=== PATIENT | male | born 1975 | race Caucasian/White ===

== ENCOUNTER 2019-06-11 06:01 | Day surgery (SDC) | payer OTHER ==
[2019-06-11] MEDS ORDERED: CEFAZOLIN SODIUM IN 0.9 % NACL 2 GM/100 ML BAG IV ONE (06:16)
[2019-06-11] MEDS ORDERED: LACTATED RINGERS 1,000 ML IV ONE (06:19)
--- NOTE | 2019-06-11 07:01 | ANESTHESIA ---
Pre-Anesthesia VS, & Labs - Diagnosis right knee meniscus tear - Procedure right knee meniscus repair Vital Signs: Temp Pulse Resp BP Pulse Ox 36.2 C L 61 15 163/106 H 96 06/11/19 06:31 06/11/19 06:31 06/11/19 06:31 06/11/19 06:31 06/11/19 06:31 Height 5 ft 11 in Weight (kg) 100 kg Home Medications and Allergies Home Medications: Ambulatory Orders Ibuprofen [Motrin] 600 mg PO Q6H PRN 05/29/19 Ibuprofen [Motrin] 600 mg PO Q6H PRN 05/29/19 Allergies/Adverse Reactions: Allergies Allergy/AdvReac Type Severity Reaction Status Date / Time No Known Drug Allergies Allergy Verified 05/29/19 12:50 Anes History & Medical History - Anesthetic History Anesthesia Complications: reports: No previous complications Family history of Anesthesia Complications: Denies Family history of Malignant Hyperthermia: Denies - Medical History Cardiovascular: reports: None Pulmonary: reports: None Gastrointestinal: reports: None Urinary: reports: None Neuro: reports: None Musculoskeletal: reports: None Endocrine/Autoimmune: reports: None Blood Disorders: reports: None Skin: reports: None Smoking Status: Never smoker Psychosocial: reports: No issues indicated - Surgical History General: Other Orthopedic: ACL reconstruction Exam General: Alert, Oriented x3, Cooperative, No acute distress Dental: WNL Mouth Openin Fingerbreadth Neck Mobility: Normal Mallampati classification: I Thyromental Distance: 4-6 cm Respiratory: Lungs clear, Normal breath sounds, No respiratory distress, No accessory muscle use Cardiovascular: Regular rate, Normal S1, Normal S2, No murmurs Abdomen: Normal bowel sounds, Soft, No tenderness, No hepatospenomegaly, No masses Extremities: No clubbing, No cyanosis, No edema, Normal pulses, No tenderness/swelling Neurological: Normal gait, Normal speech, Strength at 5/5 X4 ext, Normal tone, Sensation intact, Cranial nerves 3-12 NL, Reflexes 2+ Mental/Cognitive Status: Alert/Oriented X3, Normal for patient Cognitive Status: Within normal limits Plan Anesthesia Type: General Consent for Procedure(s) Verified and Reviewed: Yes Code Status: Attempt Resuscitation ASA classification: 2-Mild systemic disease (high blood pressure this morning, but denies any history of hypertension) Is this case an emergency?: No
[2019-06-11] MEDS ORDERED: EPINEPHrine 1 MG/ML AMP ONE (07:12)
[2019-06-11] MEDS ORDERED: BUPIVACAINE 0.25% PF 30 ML VIAL ONE (07:12)
[2019-06-11] MEDS ORDERED: PROPOFOL 200 MG/20 ML VIAL IVP ONE ×2 (07:24→07:26)
[2019-06-11] MEDS ORDERED: ONDANSETRON 4 MG/2 ML VIAL IVP ONE ×2 (07:24→07:26)
[2019-06-11] MEDS ORDERED: ACETAMINOPHEN 1,000 MG/100 ML 100 ML IV ONE ×2 (07:24→07:26)
[2019-06-11] MEDS ORDERED: GLYCOPYRROLATE 1 MG/5 ML VIAL IVP ONE ×2 (07:24→07:26)
[2019-06-11] MEDS ORDERED: KETOROLAC 30 MG/ML VIAL IVP ONE ×2 (07:24→07:26)
[2019-06-11] MEDS ORDERED: DEXAMETHASONE 4 MG/ML VIAL IVP ONE ×2 (07:24→07:26)
[2019-06-11] MEDS ORDERED: LIDOCAINE-MPF 2% 5 ML VIAL IM ONE ×2 (07:24→07:26)
[2019-06-11] MEDS ORDERED: fentaNYL 100 MCG/2 ML VIAL IVP ONE ×2 (07:24→07:26)
[2019-06-11] MEDS ORDERED: BUPIVACAINE 0.25% PF 30 ML VIAL SUBQ ONE (07:59)
[2019-06-11] MEDS ORDERED: ONDANSETRON 4 MG/2 ML VIAL IVP PRN (08:29)
[2019-06-11] MEDS ORDERED: oxyCODONE 5 MG TABLET PO PRN (08:29)
[2019-06-11] MEDS: HYDROmorphone 0.5 MG/0.5 ML SYRINGE ONE ×2 (08:36→08:41)
--- NOTE | 2019-06-11 08:42 | IMMEDIATE POSTOPERATIVE NOTE ---
Immediate Postoperative Note - Procedure Note Procedure Date: 06/11/19 Pre-Op Diagnosis: Right knee medial meniscus tear Procedure: Right knee arthroscopic partial medial meniscectomy Post-Op Diagnosis: Same Primary Surgeon: Meenakshi Porter MD Contract Admin: None Anesthesia Type: General LMA, Local Complications: No complications Estimated Blood Loss (in cc): 25 Drains, Catheters, Devices: None Specimens and Cultures: None Plan of Care: Patient tolerated procedure well instrument and sponge counts correct patient was transferred recovery room in stable additional follow standard postoperative right knee partial meniscectomy protocol
[2019-06-11] MEDS ORDERED: fentaNYL 100 MCG/2 ML VIAL ONE (08:51)
[2019-06-11] MEDS ORDERED: oxyCODONE 5 MG TABLET ONE (09:17)
--- NOTE | 2019-06-11 09:44 | OPERATIVE REPORT ---
DATE OF SERVICE: 06/11/2019 Physician: Gael Porter MD SURGEON: Gael Porter MD CELLO TEACHER: None. ANESTHESIA PROVIDER: Nish Schaffer CRNA. ANESTHESIA: General LMA, as well as 20 mL of 0.25% Marcaine local periarticular injection. PREOPERATIVE DIAGNOSIS: Right knee medial meniscus tear. POSTOPERATIVE DIAGNOSES 1. Right knee medial meniscus tear. 2. Right knee chondromalacia, multiple compartments. PROCEDURE PERFORMED: Right knee arthroscopic partial medial meniscectomy. INTRAOPERATIVE COMPLICATIONS: None noted. PREOPERATIVE ANTIBIOTICS: Weight-based IV Ancef 2 g. TOURNIQUET TIME: 25 mL FLUIDS: 350 mL lactated Ringer's. HISTORY OF PRESENT ILLNESS AND INDICATIONS: Patient is a 43-year-old gentleman who is quite active a nd had symptoms, signs and MRI findings consistent with medial meniscus tear, right knee. He failed nonoperative treatment and was quite limited regarding his preferred activities secondary to his righ t knee. We previously discussed risks, benefits, and alternatives of arthroscopic partial meniscecto my. He is indicated for this procedure. Risks, benefits, alternatives previously reviewed and again highlighted in the preoperative care unit. Patient and patient's 's questions were answered, he verbalized understanding of the above and verbalized wish to proceed with operative treatment noted. Informed consent was given. INTRAOPERATIVE FINDINGS: The patient is noted to have suprapatellar pouch clear. Medial and lateral gutters clear. Chondromalacia grade 1-2 patellofemoral compartment chondromalacia, grade 1-2 latera l tibial plateau with lateral femoral condyle and meniscus intact. Medial compartment shows grade 1- 2 chondromalacia with minimal deeper split near the weightbearing surface of the medial femoral condy le and grade 1 of the medial tibial plateau. The areas of chondromalacia are noted to be less than 1 5-20% of each surface in all cases. Medial meniscus shows complex tearing of the posterior horn and body. There is a radial component that goes near to the periphery, but then transitions into a horiz ontal component involving the majority of the inferior leaflet though the superior most periphery rem ains intact. Post-partial meniscectomy, less than 20-30% of the meniscus is noted to be involved in the remaining meniscus has smooth transition zones and good stability. No loose bodies appreciated. PROCEDURE IN DETAIL: On 06/11/2019, patient is identified in the preoperative care unit. He identif ied his right knee as the operative site. This is signed by the operating surgeon. Patient received preoperative weight-based IV antibiotics. He is brought to the operating room. General anesthesia is administered. He is placed in a comfortably safe position to avoid head, neck, and extremity inju ry. Right lower extremity has a well-padded tourniquet placed high on the right thigh, taking care t o avoid encumbrance of genitalia. This tourniquet is not used during the case. Patient's right knee had previously been shaved. Right knee and right lower extremity pre-scrubbed with Hibiclens soluti on, followed by alcohol, followed by ChloraPrep and draped under sterile conditions. At this time, surgical pause identifies right knee as the operative site. At this point, local anest hesia is infused superomedially, anteromedially and anterolaterally. A small stab incision made ante rolaterally and superomedially. Scope was introduced into the notch first and then into the suprapat ellar pouch. Fluid is infused. Outflow portal was created superomedially and then an outside-in chelle hnique was used to identify appropriate anteromedial starting point. A small incision is made. Prob e is introduced. Diagnostic arthroscopy is carried out. Please see operative findings. At this time, valgus maneuver is used with varying degrees of flexion to avoid any iatrogenic injury to articular surfaces in the medial compartment is opened. A combination of upbiting meniscal basket s and curved meniscal shaver are used to debride nonviable and torn portions of the medial meniscus. This involves a radial tear and the meniscal basket is taken down to the peripheral most aspect of t he tear, which is not quite to the periphery of the meniscus. The undersurface leaflet is then taken as it is unstable and more complexly torn and then this is all smoothed out using a curved meniscal shaver to decrease the areas of any rough or jagged meniscus. The transition zones are smoothed out. The meniscus is re-probed and noted to be stable throughout. As such, no further meniscectomy was indicated. The joint is copiously irrigated, reexamined and noted to be free of loose debris and then repeat copping machine operator ious irrigation is performed, and then the knee is evacuated. Incisions are closed after instruments are removed. Periarticular injection of anesthesia is performed. Skin is washed and dried. Xerofo rm dressing is applied after nylon is used to close the incisions, 4 x 4, Sof-Rol, and then Rocky wrap are applied. Patient tolerated the procedure well. Instrument and sponge counts are correct. Patient is transfer red to the recovery room in stable condition. Patient will follow standard postoperative right knee partial meniscectomy protocol. He will followup in 10-14 days or sooner should problems or questions arise. TD: 06/11/2019 08:56
[2019-06-11 09:51] VITALS: BP 156/110
== END 2019-06-11 06:02 | disposition home or self-care (01) ==
LOC: SDS 06:01
PROVIDERS: ATTEND Orthopaedic Surgery Sports Medicine
DX: M23.221 Derangement of posterior horn of medial meniscus due to old tear or injury, right knee (principal); M94.261 Chondromalacia, right knee
CPT/HCPCS: 29881; A9270; J0131; J0690; J1170; J7120

== ENCOUNTER 2020-10-05 18:38 | Emergency (ER) | payer OTHER ==
[2020-10-05] MEDS ORDERED: HYDROmorphone 1 MG/ML CARPUJECT IM STA (19:46)
--- NOTE | 2020-10-05 19:51 | XRAY Report ---
PROCEDURE: Foot 3 View LT INDICATIONS: soccer injury, c/o L foot pain TECHNIQUE: 3 views of the foot were acquired. COMPARISON: None FINDINGS: Bones: No fractures or dislocations. No suspicious bony lesions. Soft tissues: No tibiotalar joint effusion. Achilles tendon appears normal. IMPRESSION: No visualized acute fracture or dislocation. However, occult injury cannot be excluded. Recommend jina rt interval imaging follow-up in 7-10 days as clinically indicated for additional evaluation. Reviewed by: Mariposa Pugh MD on 10/05/2020 7:49 PM PDT Approved by: Mariposa Pugh MD on 10/05/2020 7:49 PM PDT Station ID: [id number]
--- NOTE | 2020-10-05 19:55 | ED Physician Documentation ---
History of Present Illness - Stated complaint Stated Complaint: LT FOOT/RIB PX - Chief complaint Chief Complaint: Trauma Ext - Additonal information Additional information: 44-year-old male presents emergency department for evaluation of acute left rib and foot pain. He was playing soccer for the first time in quite some time today and another player accidentally stepped on his left forefoot. He has had some pain and swelling at the MCP of the great toe, pointer toe and middle toe since. Some pain bearing full weight. His biggest area of concern however is the left rib and back pain that he got around the same time when somebody stepped on him. He does not remember another player elbowing him or jarring him. He did not fall. He has no cough, no fevers no chest pain or shortness of air. He reports the pain is worse anytime he tries to move. He did take 400 mg of ibuprofen without relief of symptoms Review of Systems Constitutional: denies: Fever, Chills Eyes: reports: Reviewed and negative Ears: reports: Reviewed and negative Nose: reports: Reviewed and negative Cardiac: reports: Reviewed and negative Respiratory: reports: Reviewed and negative GI: reports: Reviewed and negative : reports: Reviewed and negative Skin: reports: Other (Ecchymosis left forefoot). denies: Rash, Lesions Musculoskeletal: reports: Other (Left posterior rib wall pain). denies: Neck pain, Back pain Neurologic: reports: Reviewed and negative PD PAST MEDICAL HISTORY - Past Medical History Past Medical History: Yes Cardiovascular: Hypertension Respiratory: None Neuro: None Endocrine/Autoimmune: None GI: None : None HEENT: None Psych: None Musculoskeletal: None Derm: None - Past Surgical History Past Surgical History: Yes General: Other Ortho: ACL reconstruction - Present Medications Home Medications: Ambulatory Orders Medication Instructions Recorded Confirmed HYDROcod/ACETAM 5/325 [Anabel 5/325] 1 tablet PO BID PRN #10 tablet 10/05/20 Ibuprofen [Motrin] 600 mg PO Q6H PRN #20 tab 10/05/20 dilTIAZem HCL [Diltiazem 24Hr ER 240 mg PO DAILY 10/05/20 10/05/20 (Xr)] methocarbamoL [Methocarbamol] 750 mg PO TID PRN #30 tablet 10/05/20 - Allergies Allergies/Adverse Reactions: Allergies Allergy/AdvReac Type Severity Reaction Status Date / Time No Known Drug Allergies Allergy Verified 10/05/20 18:55 - Social History Does the pt smoke?: No Smoking Status: Never smoker Does the pt drink ETOH?: Yes Does the pt have substance abuse?: No - Immunizations Immunizations are current?: Yes - POLST Patient has POLST: No PD ED PE EXPANDED - General General: Alert, No acute distress - Cardiac Cardiac: Regular Rate, Radial strong equal, Pedal strong equal, Cap refill < 2 sec. No: Murmur Present - Respiratory Respiratory: Clear to ausultation rosario. No: Distress, Labored - Abdomen Abdomen: Normal Bowel sounds, Other (Some tenderness to deep palpation left lower posterior thorax without swelling or ecchymosis. Full deep pulmonary excursion.). No: Tender to palpation - Extremities Extremities: Left foot (Mild swelling and ecchymosis at the MCP joint of the left great toe pointer toe and middle toe. 2+ DP pulse. No pain at the ankle or Achilles bilaterally. No pain at the base of the fifth metatarsal.) Results - Vitals Vitals: Vital Signs - 24 hr 10/05/20 10/05/20 18:50 20:28 Temperature 36.8 C 36.7 C Heart Rate 70 68 Respiratory 16 16 Rate Blood Pressure 168/108 H 162/111 H O2 Saturation 98 99 Oxygen O2 Source Room air - Rads (name of study) left foot Radiology: Final report received (No visualized acute fracture or dislocation.) cxr Radiology: Final report received (No acute cardiopulmonary process) PD MEDICAL DECISION MAKING - ED course Complexity details: reviewed results, re-evaluated patient, d/w patient ED course: 44-year-old male presents emergency department for evaluation of acute left foot pain as well as left posterior lower rib pain after playing soccer this evening. His left foot was stepped on by another player but he does not have an inciting event for the posterior rib pain though it did begin at the same time that he was stepped on. X-ray of the foot does not reveal an obvious fracture though he does have some swelling and ecchymosis at the MCP joints of the great toe middle toe and index toe. He is able to bear weight on this foot therefore I suspect contusion over fracture. The pain in his left posterior ribs is worse with movement and reproducible. Chest x-ray does not show findings suggestive of a pneumonia or pneumothorax. Pain markedly improved following Dilaudid. I am prescribing a short course of short-acting opioid pain medication for this patient. I have reviewed the patients [employer] and no concerning findings were noted. I have discussed that the opioids are for short term therapy only, and will not be refilled from the ED. Patient will also be discharged with a prescription for ibuprofen as well as a limited amount of muscle relaxer. He reports having close follow-up with his primary care provider scheduled within a few days time. Departure - Departure Disposition: 01 Home, Self Care Clinical Impression: Rib pain on left side Contusion of left foot including toes Qualifiers: Encounter type: initial encounter Qualified Code(s): S90.32XA - Contusion of left foot, initial encounter; S90.122A - Contusion of left lesser toe(s) without damage to nail, initial encounter Condition: Stable Record reviewed to determine appropriate education?: Yes Instructions: ED Strain Chest Wall, ED Contusion Lower Extr Ch Follow-Up: JACKIE CHAUHAN DO [Primary Care Provider] - Prescriptions: methocarbamoL [Methocarbamol] 750 mg PO TID PRN #30 tablet PRN Reason: spasm Ibuprofen [Motrin] 600 mg PO Q6H PRN #20 tab PRN Reason: Pain HYDROcod/ACETAM 5/325 [Anabel 5/325] 1 tablet PO BID PRN #10 tablet PRN Reason: Pain Comments: Lebron the x-ray of your left foot does not show any broken bones. You do have contusion or bruising. This should begin to resolve over the next week. If your pain is not improving in the left foot please return to the ER to have it valentino-rayed in about 7 to 10 days time. The x-ray of your chest also shows no obvious findings but I suspect that you sprained your rib wall while playing soccer. I am prescribing a short course of hydrocodone to help with severe pain only. I do recommend that you take the ibuprofen with food 3 times a day for the next 4 to 5 days. A muscle relaxer may also help improve symptoms. Please do not miss follow-up with your primary care provider as already scheduled. Return to the ER if you develop fevers, have severe chest pain cannot take in adequate breath or feel faint. I am prescribing a short course of narcotic pain medication for you. These are potentially dangerous and addictive medications that should be used carefully. These medications may constipate you. Take an frzx-dcb-wwraujo stool softener (docusate) twice daily with plenty of water while taking these medications. If you go 24 hours without a bowel movement, take hbjy-fua-[id number] miralax, per package instructions. Do not drink or drive while taking these medications. If you received narcotic or sedating medications while in the emergency department, do not drive for 24 hours. Store this medication in a safe, secure place and out of reach of children. It is a violation of federal law to give or sell this medication to another person or to use in a manner other than prescribed. The ED will not refill narcotic prescriptions, including prescriptions lost or stolen. To dispose of unwanted medications: 1. [facility] at [address] in [place] has a medication drop box. They accept prescription medications (in pill form) Sunday through Sunday 9:00 a.m. to 5:00 p.m. 2. The [facility] [place] [employer] accepts prescription medications (in pill form only) for disposal year round. Call for more information. 3. Contact the [facility] for the next [facility] sponsored prescription drug collection event. , [phone], or [phone]; Note that many narcotic pain relievers also contain Tylenol/acetaminophen. Please ensure that your total dose of acetaminophen from all sources does not exceed 3 g (3000 mg) per day.
--- NOTE | 2020-10-05 20:38 | XRAY Report ---
PROCEDURE: Chest 2 View X-Ray INDICATIONS: cough TECHNIQUE: 2 view(s) of the chest. COMPARISON: None. FINDINGS: Surgical changes and devices: None. Lungs and pleura: No pleural effusions or pneumothorax. Lungs are clear. Mediastinum: Mediastinal contours are normal. Heart size is enlarged. Bones and chest wall: No suspicious bony abnormalities. Soft tissues appear unremarkable. IMPRESSION: No acute pulmonary process. Reviewed by: Mariposa Pugh MD on 10/05/2020 8:37 PM PDT Approved by: Mariposa Pugh MD on 10/05/2020 8:37 PM PDT Station ID: [id number]
[2020-10-05 21:17] VITALS: BP 146/89
== END 2020-10-05 21:10 | disposition home or self-care (01) ==
LOC: ED 18:38
DX: S90.32XA Contusion of left foot, initial encounter (principal); R07.81 Pleurodynia; W50.0XXA Accidental hit or strike by another person, initial encounter; Y93.66 Activity, soccer; I10 Essential (primary) hypertension
CPT/HCPCS: 71046; 73630; 96372; 99283; 99284; J1170